=== PATIENT | female | born 1980 | race Caucasian/White ===

== ENCOUNTER → 2016-06-14 | Outpatient (CLI) | payer BC ==
[~2016-06-14] MED LIST: ALBU6.7H INH; CIPR500T4 PO; HYDR-3516 PO; PREN29TA PO; Z.0.BCPILL PO
== END ==
LOC: HPND 13:17
PROVIDERS: ATTEND Obstetrics & Gynecology
DX: O36.8130 Decreased fetal movements, third trimester, not applicable or unspecified (principal); O26.843 Uterine size-date discrepancy, third trimester; O09.523 Supervision of elderly multigravida, third trimester
CPT/HCPCS: 76816; 76818

== ENCOUNTER 2016-06-22 23:44 | Inpatient (IN) | payer BC ==
[~2016-06-22] VITALS: Ht 165.1 cm; Wt 72.6 kg
[~2016-06-22 23:44] MED LIST changes: -HYDR-3516 PO; -PREN29TA PO
[2016-06-23] VITALS (8 sets, daily range): BP systolic 94–119; BP diastolic 40–65; PULSE 20–68; RESP 16–22; TEMP 97.7–98.2; O2SAT 60–97
[2016-06-23] MEDS ORDERED: PREN29TA PO (00:33)
[2016-06-23] MEDS ORDERED: ceFAZolin 1,000 MG/NS 100 ML IV SCH ×2 (00:45)
[2016-06-23] MEDS ORDERED: EPIDURAL-NALOXONE HCL 0.4 MG/ML AMP IV PRN (01:00)
[2016-06-23] MEDS ORDERED: EPIDURAL-DIPHENHYDRAMINE HCL 50 MG CAP PO PRN (01:00)
[2016-06-23] MEDS ORDERED: CITRIC ACID-SODIUM CITRATE LIQ 30 ML UDC PO SCH (01:00)
[2016-06-23] MEDS ORDERED: SIMETHICONE 80 MG CHEWABLE TAB PO PRN (01:00)
[2016-06-23] MEDS ORDERED: LACTATED RINGER'S 1000 ML IV ONE (01:00)
[2016-06-23] MEDS: LACTATED RINGER'S 1000 ML IV SCH (01:00)
[2016-06-23] MEDS ORDERED: SODIUM CHLORIDE 0.9% FLUSH 5 ML FLUSH IV PRN (01:00)
[2016-06-23] MEDS ORDERED: KETOROLAC TROMETHAMINE 30 MG/ML (IVP) VIAL IV PUSH PRN (01:00)
[2016-06-23] MEDS ORDERED: MEASLES, MUMPS, RUBELLA VACCINE 0.5 ML VIAL SQ ONE (01:00)
[2016-06-23] MEDS ORDERED: EPIDURAL-NO SYSTEMIC NARCOTICS XX PRN (01:00)
[2016-06-23] MEDS ORDERED: ONDANSETRON HCL 4 MG/2 ML VIAL IVP PRN (01:00)
[2016-06-23] MEDS ORDERED: oxyCODONE/ACETAMINOPHEN 5 MG/325 MG TAB PO PRN ×2 (01:00)
[2016-06-23] MEDS ORDERED: ZOLPIDEM TARTRATE 5 MG TAB PO PRN (01:00)
[2016-06-23] MEDS ORDERED: EPIDURAL-DIPHENHYDRAMINE HCL 50 MG/ML VIAL IV PUSH PRN (01:00)
[2016-06-23] MEDS ORDERED: OXYTOCIN 30 UNITS-500ML PREMIX 500 ML IV ONE (01:00)
[2016-06-23] MEDS ORDERED: EPIDURAL-DO NOT ADMINISTER ANTICOAGULANTS XX PRN (01:00)
[2016-06-23] MEDS ORDERED: OXYTOCIN 10 UNIT/ML AMP ONE (01:05)
[2016-06-23 01:09] LABS: AUTOMATED NEUTROPHIL # 6.6 TH/MM3 (1.8-7.7); BASOPHIL % 0.4 % (0.0-2.0); EOSINOPHIL # 0.1 TH/MM3 (0-0.4); EOSINOPHIL % 1.2 % (0.0-4.0); HEMATOCRIT 38.2 % (35.0-46.0); HEMO FLAGS DIFF FINAL; LYMPH % 22.4 % (9.0-44.0); LYMPHOCYTE # 2.1 TH/MM3 (1.0-4.8); MEAN CELL VOLUME 90.8 FL (80.0-100.0); MEAN CORPUSCULAR HEMOGLOBIN 30.9 PG (27.0-34.0); PLATELET COUNT 179 TH/MM3 (150-450); RED BLOOD COUNT 4.21 MIL/MM3 (4.00-5.30); RED CELL DISTRIBUTION WIDTH 12.7 % (11.6-17.2); WHITE BLOOD COUNT 9.4 TH/MM3 (4.0-11.0)
[2016-06-23] MEDS: ACETAMINOPHEN 1000 MG/100 ML VIAL IV SCH ×3 (02:00→17:22)
[2016-06-23] MEDS ORDERED: ONDANSETRON HCL 4 MG/2 ML VIAL ONE (02:07)
[2016-06-23] MEDS ORDERED: MORPHINE SULFATE PF 5 MG/10 ML VIAL ONE (02:07)
[2016-06-23] MEDS ORDERED: ACETAMINOPHEN 1000 MG/100 ML VIAL IV ONE (02:09)
[2016-06-23] MEDS ORDERED: ACETAMINOPHEN/HYDROcodone 325 MG/5 MG TAB PO PRN ×2 (02:15)
[2016-06-23] MEDS ORDERED: DEXAMETHASONE SOD PHOS 4 MG/ML VIAL IV PUSH ONE (02:34)
[2016-06-23] MEDS ORDERED: METOCLOPRAMIDE HCL 10 MG/2 ML VIAL IV ONE (02:34)
[2016-06-23] MEDS ORDERED: OXYTOCIN 30 UNITS-500ML PREMIX 500 ML ONE (03:36)
[2016-06-23] MEDS ORDERED: LACTATED RINGER'S 1000 ML INJ 1,000 ML IV SCH (13:04)
[2016-06-23] MEDS: IBUPROFEN 600 MG TAB PO PRN ×2 (13:56→21:21)
[2016-06-23] MEDS: DOCUSATE SODIUM 50 MG/SENNA 8.6 MG TAB PO PRN (17:48)
[2016-06-23] MEDS ORDERED: OXYTOCIN 30 UNITS-500ML PREMIX 500 ML IV PRN (18:15)
[2016-06-24] MEDS: IBUPROFEN 600 MG TAB PO PRN ×4 (04:01→22:52)
[2016-06-24 07:31] LABS: AUTOMATED NEUTROPHIL # 8.1 TH/MM3 (1.8-7.7); BASOPHIL % 0.4 % (0.0-2.0); EOSINOPHIL # 0.2 TH/MM3 (0-0.4); EOSINOPHIL % 1.4 % (0.0-4.0); HEMATOCRIT 29.6 % (35.0-46.0); HEMO FLAGS DIFF FINAL; LYMPH % 18.8 % (9.0-44.0); LYMPHOCYTE # 2.1 TH/MM3 (1.0-4.8); MEAN CELL VOLUME 92.4 FL (80.0-100.0); MEAN CORPUSCULAR HEMOGLOBIN 31.1 PG (27.0-34.0); MEAN CORPUSCULAR HGB CONC 33.7 % (32.0-36.0); MONO % 5.1 % (0.0-8.0); NEUT % 74.3 % (16.0-70.0); PLATELET COUNT 132 TH/MM3 (150-450); RED BLOOD COUNT 3.21 MIL/MM3 (4.00-5.30); WHITE BLOOD COUNT 10.9 TH/MM3 (4.0-11.0)
[2016-06-24 07:41] LABS: BICARBONATE 26.2 MEQ/L (21.0-32.0)
[2016-06-24 08:20] VITALS: BP 100/62; PULSE 58; RESP 18; TEMP 97.9
[2016-06-24] MEDS: ACETAMINOPHEN 325 MG TAB PO PRN ×3 (10:00→22:51)
[2016-06-24 16:15] VITALS: BP 108/51; PULSE 63; RESP 18; TEMP 98.3
[2016-06-24 20:10] VITALS: BP 104/63; PULSE 63; RESP 18; TEMP 98.2
[2016-06-24] MEDS: DOCUSATE SODIUM 50 MG/SENNA 8.6 MG TAB PO PRN (22:52)
[2016-06-25] MEDS: IBUPROFEN 600 MG TAB PO PRN (06:26)
[2016-06-25] MEDS: ACETAMINOPHEN 325 MG TAB PO PRN (06:26)
[2016-06-25] MEDS ORDERED: HYDR-3516 PO (08:13)
--- NOTE | 2016-06-25 08:13 | HHI.DCPOC ---
Discharge Care Plan Report Symptoms to Your Doctor -Temperate above 100.5 degrees -Redness, of incision or excessive or foul smelling drainage -Unusual pain or calf pain -Increased vaginal bleeding -Painful or difficulty urinating -Feelings of extreme sadness or anxiety after 2 weeks Goals to Promote Your Health * To prevent worsening of your condition and complications * To maintain your health at the optimal level Directions to Meet Your Goals Take your medications as prescribed Follow your dietary instruction Follow activity as directed Ensure plenty of rest for recovery Drink fluids for hydration Keep your appointments as scheduled Take your immunizations and boosters as scheduled If your symptoms worsen call your PCP, if no PCP go to Urgent Care Center or Emergency Room Smoking is Dangerous to Your Health. Avoid second hand smoke Call the 24-hour crisis hotline for domestic abuse at Gabe Nicole MD Jun 25, 2016 08:13
[2016-06-25] MEDS ORDERED: DIPHTH/TETANUS/ACEL PERTUSSIS (BOOSTER) 0.5 ML VIAL/PFS IM ONE (09:00)
[2016-06-25] MEDS: SODIUM CHLORIDE 0.9% FLUSH 5 ML FLUSH IV SCH (09:00)
--- NOTE | 2016-06-25 09:36 | MH ---
cc: BRIDGET MCKENZIE DATE OF ADMISSION: 06/23/2016 ADMISSION DIAGNOSIS 1. 38/39 weeks early labor. 2. Advanced maternal age. 3. Cephalopelvic disproportion. HISTORY OF PRESENT ILLNESS The patient is a 35-year-old white female para 0 with a EDC of 07/05/2016 by early ultrasound. Her preop course was benign. Her labs include Rh negative, nonreactive, rubella immune, rubeola immune, HAA negative Pap negative, glucose screen normal. Strep culture positive. She had normal panorama, normal first TM screen. section was planned for small telemetry and the patient developed early labor is now admitted for section. PAST MEDICAL HISTORY Previous surgery is none. MEDICATIONS Vitamins. ALLERGIES SULFA TRANSFUSIONS None. 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 alcohol, tobacco and drugs are none. PHYSICAL EXAMINATION: A gravid white female with no distress. HEAD, EYES, EARS, NOSE, AND THROAT: Exam is normal. CHEST: Chest is clear HEART: Regular rate. It is symmetrical and . EFW of 3400 grams. Cervix is 2 centimeters. ASSESSMENT: As above. PLAN: Is now admitted for primary LTCS. The procedure, the risks and complications and would like to proceed. MD LISSETTE Álvarez/marilia /12:52 AM /9:34 AM MTDPaul
[2016-06-25] MEDS: LACTATED RINGER'S 1000 ML IV SCH (13:00)
--- NOTE | 2016-06-27 13:21 | MP ---
cc: JONAHBRIDGET DATE OF SURGERY 06/23/2016 PREOPERATIVE DIAGNOSIS 38-39 weeks early labor, advanced maternal age 35, cephalopelvic disproportion. POSTOPERATIVE DIAGNOSIS 38-39 weeks early labor, advanced maternal age 35, cephalopelvic disproportion, delivered, occiput posterior. PROCEDURE Primary low transverse section. ANESTHESIA Spinal SURGEON Bridget Nicole MD PLASTIC AND RECONSTRUCTIVE SURGEON Felecia Mascorro ESTIMATED BLOOD LOSS About 500 cc. FLUIDS 1.2 liters of crystalloid OBJECTIVE FINDINGS Following induction of adequate spinal anesthesia, the patient was prepped and draped supine on the operating table left lateral tilt position in the usual sterile fashion with the bladder being drained via [place] catheterization. The abdomen was opened through a Pfannenstiel incision using a knife to cut down through skin to the fascia. The fascia opened transversely, stripped from the muscles. The rectus muscle split in the midline and the peritoneum opened sharply without incident. The bladder flap was taken down sharply, retracted inferiorly with a Darrel blade. The lower uterine segment incised transversely with a knife and extended with blunt section. There was clear fluid. The baby was in the ROP position, gently rotated and delivered with bumper machine operator guidance and fundal pressure. The mouth was suctioned, cord milked, clamped and cut and the baby passed to awaiting team. Cord blood collected for typing and sent for donation and the uterine cavity wiped clean with laps. The uterus was exteriorized and closed in two layers with running suture, first with a running locking stitch of 0-Vicryl, second running imbricating stitch of Vicryl. Posterior inspection, uterus, tubes and ovaries normal. The uterus was now replaced in the cavity. Irrigation was performed. No bleeding evident. The bladder flap was closed with a running stitch 3-0 Vicryl. All laps and retractors were removed. Counts were correct. The anterior peritoneum closed with a running stitch of 2-0 Vicryl. The fascia closed with a running locking stitch of 0-Vicryl corner to midline and tied, subcu closed with 3-0 Vicryl and skin with a running subcuticular 3-0 Monocryl. Dermabond applied. All counts correct and the patient was awakened and taken to the recovery room in good condition. MD LISSETTE Álvarez/BARTOLO /2:09 AM /1:16 PM
--- NOTE | 2016-07-04 08:08 | MD ---
cc: BRIDGET MCKENZIE M.D. ADMISSION DATE: 06/23/2016 DISCHARGE DATE: 06/25/2016 ADMISSION DIAGNOSIS Term , early labor, cephalopelvic disproportion. DISCHARGE DIAGNOSIS Term , early labor, cephalopelvic, plus occiput posterior. PROCEDURE Primary low transverse section on 06/23/2016. HISTORY OF PRESENT ILLNESS This is a 35-year-old white female para who had an EDC of 07/05/2016 by early ultrasound. Her course was benign. She desired for a small pelvimetry. She was admitted in early labor on the morning of 06/23/2016, underwent a primary low transverse section with delivery of a viable vigorous female. 's were 9 and 9, weight was 6 pounds 2 ounces, ROP position. Postop did well with gradual advancement of diet and activity. Discharged home in excellent condition on 06/25/2016. Her pre and postop labs were normal. The baby is Rh negative, so RhoGAM was not indicated. She was advised NPV, light activity, no driving for one week. She was given a prescription for Lortab 5, one to two p.o. q4 hours as needed #40. MD LISSETTE Álvarez/BARTOLO /8:21 AM /7:59 AM MTDPaul
== END 2016-06-25 16:23 | disposition home or self-care (01) | DRG 766 ==
LOC: HOBED 23:44 → H2EB 06-23 00:12 → H1EA 06-23 03:53
PROVIDERS: ADMIT Obstetrics & Gynecology; ATTEND Obstetrics & Gynecology
PROC: 10D00Z1 Extraction of Products of Conception, Low, Open Approach (ICD-10-PCS; principal; 2016-06-23)
DX: O33.8 Maternal care for disproportion of other origin (principal); O64.0XX0 Obstructed labor due to incomplete rotation of fetal head, not applicable or unspecified; O99.824 Streptococcus B carrier state complicating childbirth; O09.513 Supervision of elderly primigravida, third trimester; Z3A.38 38 weeks gestation of pregnancy; Z37.0 Single live birth
CPT/HCPCS: 76937; 80048; 85025; 86850; 86900; 86901; 90715; 99285; J0131; J1100; J2274; J2405; J2590; J2765; J7120